=== PATIENT | female | born 1940 | race Caucasian/White ===

== ENCOUNTER 2017-11-09 13:17 | Emergency (ER) | payer MEDICARE, BC ==
--- NOTE | 2017-11-09 15:15 | CT ---
BRAIN CT WITHOUT IV CONTRAST: History: 77-year-old female with history of fall from step stool hitting head. FINDINGS: There is a large right posterior parietal scalp hematoma with skin mary. No focal mass or midline shift. There is atrophy and chronic white matter ischemic change. IMPRESSION: No intracranial mass or bleed. Right scalp hematoma. Atrophy and chronic white matter ischemic change . POS: [facility]
--- NOTE | 2017-11-09 15:18 | RAD ---
AP PELVIS: Indication: History of fall. Comparison: None. FINDINGS: No acute fracture or subluxation is grossly evident. 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 There are moderate degenerative changes of the symphysis pubis. Bowel gas pattern is nonobstruct ed. There is a small phlebolith in the lower left hemipelvis. IMPRESSION: No acute osseous abnormality. POS: [facility]
--- NOTE | 2017-11-09 15:20 | CT ---
CT OF THE CERVICAL SPINE WITHOUT CONTRAST: History: Fall, neck pain. Comparison: None. FINDINGS: There is slight anterior translation of C4 on C5. There is multilevel disc degenerative facet osteoar thritic change. There is diffuse osteopenia. Lateral masses are symmetric. Osseous central canal appe ars preserved. Prevertebral soft tissues are normal appearing. There are some calcifications of the l igamentum flavum at C7 vertebral level. IMPRESSION: No acute fracture or subluxation is evident. Moderate multilevel spondylosis of the cervical spine. POS: [facility]
== END 2017-11-09 15:16 | disposition home or self-care (01) ==
LOC: SCSER 13:17
DX: S01.01XA Laceration without foreign body of scalp, initial encounter (principal); W11.XXXA Fall on and from ladder, initial encounter
CPT/HCPCS: 12002; 70450; 72125; 72170

== ENCOUNTER 2017-11-16 11:13 | Emergency (ER) | payer MEDICARE, BC | END 2017-11-16 11:43 | disposition home or self-care (01) | LOC: SCSER 11:13 | DX: S01.01XD Laceration without foreign body of scalp, subsequent encounter (principal) ==

== ENCOUNTER 2023-10-13 04:55 | Emergency (ER) | payer MEDICARE, BC ==
[2023-10-13 05:57] LABS: #Basophils 0.1 thou/uL (0.0-0.2); #Eosinphils 0.1 thou/uL (0.0-0.7); #Monocytes 0.5 thou/uL (0.11-0.59); #Neutrophils 5.2 thou/uL (1.40-6.50); %Basophils 0.7 % (0.0-1.0); %Eosinophils 1.6 % (0.0-10.0); %Lymphocytes 20.2 % (21.0-51.0); Hematocrit 40.2 % (36.0-47.0); Hemoglobin 13.9 g/dL (12.0-16.0); Mean Corpuscular HGB CONC 34.6 g/dL (32.0-36.0); Mean Corpuscular Hemoglobin 31.9 pg (27.0-31.0); Mean Corpuscular Volume 92.2 fl (78.0-98.0); Platelet Count 232 10x3/uL (130-400); RBC Distribution Width 12.1 % (11.5-14.5); Red Blood Cell (RBC) Count 4.36 mill/uL (4.20-5.40); White Blood Cell (WBC) Count 7.4 10x3/uL (4.8-10.8)
[2023-10-13 06:19] LABS: ALT (SGPT) 12 U/L (8-55); AST (SGOT) 14 U/L (5-34); Albumin 4.1 g/dL (3.4-4.8); Alkaline Phosphatase 44 U/L (40-110); Anion Gap 10 mmol/L (10-20); BUN (Urea Nitrogen) 12 mg/dL (9.8-20.1); Bilirubin, Total 0.5 mg/dL (0.2-1.2); Calc. Creatinine Clearance 0 mL/min (70-130); Calcium 8.9 mg/dL (7.8-10.44); Carbon Dioxide 23 mmol/L (23-31); Chloride 104 mmol/L (98-107); Estimated GFR 79; Globulin 2.5 g/dL (2.4-3.5); Glucose 118 mg/dL (83-110); Magnesium 2.1 mg/dL (1.6-2.6); Potassium 4.3 mmol/L (3.5-5.1); Protein, Total 6.6 g/dL (5.8-8.1); Sodium 133 mmol/L (136-145)
[2023-10-13 06:24] LABS: Troponin I Less than 0.010 ng/mL (< 0.028)
== END 2023-10-13 07:15 | disposition home or self-care (01) ==
LOC: ERS 04:55
DX: I10 Essential (primary) hypertension (principal); I25.10 Atherosclerotic heart disease of native coronary artery without angina pectoris; Z79.899 Other long term (current) drug therapy
CPT/HCPCS: 36415; 71045; 80053; 83735; 83880; 84484; 85025; 93005

== ENCOUNTER 2023-10-18 08:32 | Outpatient (CLI) | payer MEDICARE, BC ==
[2023-10-18] MEDS ORDERED: Iopamidol 370 76% 100 ML VIAL ONE (10:03)
== END 2023-10-18 08:33 | disposition home or self-care (01) ==
LOC: CT 08:32
PROVIDERS: ATTEND Internal Medicine Cardiovascular Disease
DX: R03.0 Elevated blood-pressure reading, without diagnosis of hypertension (principal); I70.0 Atherosclerosis of aorta; K57.30 Diverticulosis of large intestine without perforation or abscess without bleeding; N28.1 Cyst of kidney, acquired; K76.89 Other specified diseases of liver
CPT/HCPCS: 74177

== ENCOUNTER 2023-10-27 12:25 | Outpatient (CLI) | payer MEDICARE, BC ==
[2023-10-27] MEDS ORDERED: diphenhydrAMINE 50 MG/ML VIAL ONE (13:29)
== END 2023-10-27 12:26 | disposition home or self-care (01) ==
LOC: CT 12:25
PROVIDERS: ATTEND Internal Medicine Cardiovascular Disease
DX: I10 Essential (primary) hypertension (principal); I70.0 Atherosclerosis of aorta; K44.9 Diaphragmatic hernia without obstruction or gangrene; N28.1 Cyst of kidney, acquired; K76.89 Other specified diseases of liver; I70.1 Atherosclerosis of renal artery
CPT/HCPCS: 74175; J1200